=== PATIENT | male | born 1980 | race African-American/Black ===

== ENCOUNTER 2017-05-14 19:39 | Emergency (ER) | payer MEDICAID ==
[~2017-05-14] VITALS: Ht 182.9 cm; Wt 74.8 kg
[~2017-05-14 19:39] MED LIST: ACETAMINOPHEN-1 EAC1 ORAL; ALBUTEROL SULF8.5 GM INH; AMOXICILLIN500 MG ORAL; AUGMENTIN 875-1 EAC1 ORAL; AZITHROMYCIN250 MG ORAL; DOXYCYCLINE MO100 MG ORAL; IBUPROFEN600 MG ORAL; NKM; NORCO 5-325 TA1 EACH ORAL; PREDNISONE20 MG ORAL; PROAIR HFA8.5 GM INH
[2017-05-14] MEDS ORDERED: NKM (19:49)
[2017-05-14 19:51] VITALS: BP 131/79
[2017-05-14] MEDS ORDERED: AMOXICILLIN500 MG ORAL (20:29)
[2017-05-14] MEDS ORDERED: ALBUTEROL SULF8.5 GM INH (20:29)
[2017-05-14] MEDS ORDERED: PREDNISONE20 MG ORAL (20:29)
[2017-05-14] MEDS ORDERED: PROMETHAZINE-C118 M1 ORAL (20:29)
[2017-05-14 20:39] VITALS: BP 131/79
--- NOTE | 2017-05-15 13:23 | Emergency Room Report ---
History of Present Illness General Chief Complaint: Upper Respiratory Illness Source: Patient Present Illness HPI 36-year-old male presents ED for evaluation. States that he did have a productive cough with thick greenish sputum for last 2 days. Also has history of asthma. Denies fevers or chills. Denies sick contacts recent travel. Denies ear ache or sore throat. No other aggravating relieving factors. Denies any other associated symptoms Allergies: Coded Allergies: No Known Allergies (Unverified , 11/28/12) Patient History Past Medical History: asthma Past Surgical History: none Pertinent Family History: none Social History: Denies: smoking, alcohol use, drug use Immunizations: UTD Reviewed Nursing Documentation: PMH: Agreed, PSxH: Agreed Nursing Documentation-PMH Past Medical History: No History, Except For Hx Cardiac Problems: No - hiv Hx Asthma: Yes Hx COPD: No - "walking pneumonia" Hx Cancer: No Hx Gastrointestinal Problems: No Review of Systems All Other Systems: negative except mentioned in HPI Physical Exam Vital Signs Date Time Temp Pulse Resp B/P (MAP) Pulse Ox O2 Delivery O2 Flow Rate FiO2 05/14/17 19:44 97.7 96 16 131/79 99 Room Air Sp02 EP Interpretation: reviewed, normal General Appearance: no apparent distress, alert, GCS 15, non-toxic Head: normocephalic, atraumatic Eyes: bilateral eye normal inspection, bilateral eye PERRL ENT: hearing grossly normal, normal pharynx, no angioedema, normal voice Neck: full range of motion, supple/symm/no masses Respiratory: chest non-tender, lungs clear, normal breath sounds, speaking full sentences Cardiovascular #1: regular rate, rhythm, no edema Cardiovascular #2: 2+ carotid (R), 2+ carotid (L), 2+ radial (R), 2+ radial (L) , 2+ dorsalis pedis (R), 2+ dorsalis pedis (L) Gastrointestinal: normal bowel sounds, non tender, soft, non-distended, no guarding, no rebound Rectal: deferred Genitourinary: normal inspection, no CVA tenderness Musculoskeletal: back normal, gait/station normal, normal range of motion, non- tender Neurologic: alert, oriented x3, responsive, motor strength/tone normal, sensory intact, speech normal Psychiatric: judgement/insight normal, memory normal, mood/affect normal, no suicidal/homicidal ideation Reflexes: 3+ bicep (R), 3+ bicep (L), 3+ tricep (R), 3+ tricep (L), 3+ knee (R) , 3+ knee (L) Skin: normal color, no rash, warm/dry, well hydrated Lymphatic: no adenopathy Medical Decision Making Diagnostic Impression: Primary Impression: Atypical pneumonia ER Course Hospital Course 36 yo M presents with productive cough Differential diagnoses include: URI, pharyngitis, otitis media, asthma Clinical course Patient placed on stretcher. After initial history, physical exam reveals a young male in no acute distress. Bilateral TM unremarkable. No pharyngeal erythema. No tonsillar exudates. No lymphadenopathy. minimal crackles in lungs. abdomen soft. Clinical presentation consistent with atypical pneumonia. Will prescribe antibiotics Diagnosis - atypical pneumonia Stable and discharged home with Rx Amoxicillin, albuterol, prednisone, promethazine/codeine. Instructed to followup with PMD. Return to ED if symptoms recur or worsen Last Vital Signs Date Time Temp Pulse Resp B/P (MAP) Pulse Ox O2 Delivery O2 Flow Rate FiO2 05/14/17 20:39 97.7 96 16 131/79 99 Room Air Status: improved Disposition: HOME, SELF-CARE Condition: Stable Scripts Codeine/Promethazine Hcl* (PROMETHAZINE-CODEINE SYRUP*) 118 Ml Syrup 5 ML ORAL Q6H Y for For Cough, #118 ML 0 Refills Prov: RAJESH CORTES M.D. 05/14/17 Prednisone* (PREDNISONE*) 20 Mg Tablet 40 MG ORAL DAILY, #10 TAB Prov: RAJESH CORTES M.D. 05/14/17 Albuterol Sulfate* (ALBUTEROL SULFATE MDI*) 8.5 Gm Hfa.aer.ad 2 PUFF INH Q6H, #1 EA 0 Refills Prov: RAJESH CORTES M.D. 05/14/17 Amoxicillin* (AMOXIL*) 500 Mg Capsule 500 MG ORAL THREE TIMES A DAY, #21 CAP Prov: RAJESH CORTES M.D. 05/14/17 Referrals: NOT CHOSEN IPA/,REFERRING (PCP) Patient Instructions: Community-Acquired Pneumonia, Adult, [id number] RAJESH CORTES M.D. May 15, 2017 13:22
== END 2017-05-14 20:40 | disposition home or self-care (01) ==
LOC: EMR 20:40
DX: J18.9 Pneumonia, unspecified organism (principal); J45.909 Unspecified asthma, uncomplicated
CPT/HCPCS: 99283

== ENCOUNTER 2017-10-19 17:11 | Emergency (ER) | payer MEDICAID ==
[~2017-10-19] VITALS: Ht 182.9 cm; Wt 72.6 kg
[~2017-10-19 17:11] MED LIST changes: +PROMETHAZINE-C118 M1 ORAL
[2017-10-19] MEDS ORDERED: AUGMENTIN 875-1 EAC1 ORAL (18:05)
[2017-10-19 18:07] VITALS: BP 120/65
[2017-10-19 18:15] VITALS: BP 120/65
[2017-10-19] MEDS ORDERED: Augmentin 875mg Tab ORAL ONE (18:15)
[2017-10-19] MEDS ORDERED: IBUPROFEN600 MG ORAL (18:21)
--- NOTE | 2017-10-19 21:34 | Emergency Room Report ---
History of Present Illness General Chief Complaint: Skin Rash/Abscess Source: Patient, Medical Record Present Illness HPI 36-year-old male presents ED complaining of pain and swelling to right hand. States that yesterday he injected methamphetamine into his hand. Pain is dull, 8 out of 10, nonradiating. Denies fevers or chills. Denies any discharge. No other aggravating relieving factors. Denies any other associated symptoms Allergies: Coded Allergies: No Known Allergies (Unverified , 11/28/12) Patient History Past Surgical History: none Pertinent Family History: none Social History: Reports: drug use; Denies: smoking, alcohol use Immunizations: UTD Reviewed Nursing Documentation: PMH: Agreed; PSxH: Agreed Nursing Documentation-PMH Past Medical History: No History, Except For Hx Cardiac Problems: No - hiv Hx Asthma: Yes Hx COPD: No - "walking pneumonia" Hx Cancer: No Hx Gastrointestinal Problems: No Review of Systems All Other Systems: negative except mentioned in HPI Physical Exam Vital Signs Date Time Temp Pulse Resp B/P (MAP) Pulse Ox O2 Delivery O2 Flow Rate FiO2 10/19/17 17:39 99.2 108 18 120/65 98 Room Air 99.1 Sp02 EP Interpretation: reviewed, normal General Appearance: no apparent distress, alert, GCS 15, non-toxic Head: normocephalic Eyes: bilateral eye normal inspection, bilateral eye PERRL ENT: normal ENT inspection Neck: normal inspection Respiratory: normal inspection Cardiovascular #1: normal inspection Gastrointestinal: normal inspection Rectal: deferred Genitourinary: no CVA tenderness Musculoskeletal: swelling - R hand Neurologic: alert, oriented x3, responsive, motor strength/tone normal, sensory intact, speech normal Psychiatric: normal inspection Skin: other - swelling/induration R hand. no fluctuance or discharge Lymphatic: normal inspection Medical Decision Making Diagnostic Impression: Primary Impression: Cellulitis of hand ER Course Hospital Course 36-year-old male presents to ED with redness, swelling to right hand Differential diagnoses include: Cellulitis, dermatitis, insect bite, abscess Clinical course Patient placed on stretcher. After initial history, physical exam reveals a male in no acute distress. On exam there is swelling, erythema and induration to the right hand. There is no fluctuance. Patient documents history of drug abuse which likely contributed to his infection. Given Augmentin here and ibuprofen here for pain. We'll discharge on antibiotics Diagnosis - cellulitis of hand stable and discharged to home with prescription for augmentin, motrin. Instructed to followup with PMD. Instructed return to ED if symptoms recur or worsen Last Vital Signs Date Time Temp Pulse Resp B/P (MAP) Pulse Ox O2 Delivery O2 Flow Rate FiO2 10/19/17 18:17 99.1 10/19/17 18:15 89 18 120/65 98 Room Air Status: improved Disposition: HOME, SELF-CARE Condition: Stable Scripts Ibuprofen* (MOTRIN*) 600 Mg Tablet 600 MG ORAL Q8H PRN for For Pain, #30 TAB 0 Refills Prov: Jone Wiggins MD 10/19/17 Amoxicillin/Potassium Clav 875-125* (AUGMENTIN 875-125 TABLET*) 1 Each Tablet 1 TAB ORAL TWICE A DAY, #20 TAB Prov: Jone Wiggins MD 10/19/17 Referrals: NON PHYSICIAN (PCP) Patient Instructions: Abscess, [id number] Jone Wiggins MD Oct 19, 2017 21:34
== END 2017-10-19 18:20 | disposition home or self-care (01) ==
LOC: EMR 18:00
DX: L03.113 Cellulitis of right upper limb (principal); J45.909 Unspecified asthma, uncomplicated; F15.90 Other stimulant use, unspecified, uncomplicated
CPT/HCPCS: 99284

== ENCOUNTER 2019-02-27 11:57 | Emergency (ER) | payer MEDICAID, OTHER ==
[~2019-02-27] VITALS: Ht 182.9 cm; Wt 72.6 kg
[2019-02-27 12:10] VITALS: BP 107/71
--- NOTE | 2019-02-27 12:10 | NUR ---
ED Nurse Note: Patient walked into ED c/o diarrhea and generalized weakness for the past 2 days, states that he is "not feeling well" patient is acting very lethargic, heart rate of 145. EKG done, IV started on patients right forearm 18 gauge. initially patients refusing care, states that he only wanted urine sample. patient placed on a property manager. o2 sat at 96%, will continue to monitor.
[2019-02-27] MEDS ORDERED: Omnipaque-300 100ml vial INJ PRN (12:15)
[2019-02-27 12:44] LABS: HEMATOCRIT 44.9 % (42.0-52.0); HEMOGLOBIN 14.8 G/DL (14.2-18.0); LYMPHOCYTES % (AUTO) 31.4 % (20.0-45.0); MEAN CORPUSCULAR VOLUME 85 FL (80-99); NEUTROPHILS % (AUTO) 53.6 % (45.0-75.0); PLATELET COUNT 133 K/UL (150-450); RED BLOOD COUNT 5.28 M/UL (4.70-6.10); RED CELL DISTRIBUTION WIDTH 12.1 % (11.6-14.8); WHITE BLOOD COUNT 8.5 K/UL (4.8-10.8)
[2019-02-27 12:55] LABS: ANION GAP 8 mmol/L (5-15); BLOOD UREA NITROGEN 13 mg/dL (7-18); CALCIUM 8.8 MG/DL (8.5-10.1); CARBON DIOXIDE 29 MMOL/L (21-32); CHLORIDE 97 MMOL/L (98-107); CREATININE 1.4 MG/DL (0.55-1.30); POTASSIUM 3.7 MMOL/L (3.5-5.1); SODIUM 133 MMOL/L (136-145)
[2019-02-27 12:56] LABS: INR 1.4 (0.9-1.1)
[2019-02-27 12:59] LABS: ALANINE AMINOTRANSFERASE 20 U/L (12-78); ALBUMIN 2.7 G/DL (3.4-5.0); ALBUMIN/GLOBULIN RATIO 0.4 (1.0-2.7); ALKALINE PHOSPHATASE 76 U/L (46-116); ASPARTATE AMINO TRANSFERASE 26 U/L (15-37); BILIRUBIN,TOTAL 0.7 MG/DL (0.2-1.0)
--- NOTE | 2019-02-27 13:30 | NUR ---
ED Nurse Note: Patient is refusing CT and UA. Patient non compliant. S[place] Urena notified.
--- NOTE | 2019-02-27 14:00 | NUR ---
AMA: Patient is aox4, able to make own decisions. Patient refusing care. patient left against medical advice. Explained risks of leaving AMA including . Patient verbalized understanding. Removed ID band and IV line without complications. Patient signed AMA form. SEE AMA FORM. [place] Urena and Dr. Lepe made aware.
--- NOTE | 2019-02-27 20:24 | Emergency Room Report ---
History of Present Illness General Chief Complaint: Diarrhea Source: Patient Present Illness HPI 38-year-old male with history of HIV positive currently not taking any medication and heavy methamphetamine abuse here complaining of 2 days of multiple bouts of nonbloody emesis and nonbloody diarrhea. Complains of diffuse abdominal pain. Denies any recent use of methamphetamine, tobacco smoke , alcohol intake, or recent travel or intake of unusual patient comes today to emergency room tachycardic with heart rate of 147. Patient is noncompliant and does not want any blood work as reports that his veins are hard to find as he uses explains to inject methamphetamine. Patient is rating staff and nurses with disrespect and rude manner. Denies fever and chills. Refuses to get CT scan done. Denies history of HIV positive. Denies fever and chills. Denies chest pain, shortness of breath, palpitation, dizziness and headache. Has not taken medication for symptom relief. Allergies: Coded Allergies: No Known Allergies (Unverified , 11/28/12) Patient History Past Medical History: see triage record Past Surgical History: unable to obtain Pertinent Family History: none Immunizations: UTD Reviewed Nursing Documentation: PMH: Agreed; PSxH: Agreed Nursing Documentation-PMH Past Medical History: No History, Except For Hx Cardiac Problems: No - hiv Hx Asthma: Yes Hx COPD: No - "walking pneumonia" Hx Cancer: No Hx Gastrointestinal Problems: No Review of Systems All Other Systems: negative except mentioned in HPI Physical Exam Vital Signs Date Time Temp Pulse Resp B/P (MAP) Pulse Ox O2 Delivery O2 Flow Rate FiO2 02/27/19 12:01 98.8 147 18 107/71 (83) 95 Room Air Sp02 EP Interpretation: abnormal - Elevated heart rate General Appearance: alert, GCS 15, non-toxic, mild distress Head: normocephalic, atraumatic Eyes: bilateral eye normal inspection, bilateral eye PERRL ENT: hearing grossly normal, normal pharynx, no angioedema, normal voice Neck: full range of motion, supple/symm/no masses Respiratory: chest non-tender, lungs clear, normal breath sounds, no rhonchi, no wheezing, speaking full sentences Cardiovascular #1: regular rate, rhythm, no edema, no JVD, no murmur Cardiovascular #2: 2+ radial (R), 2+ radial (L) Gastrointestinal: normal bowel sounds, non tender, soft, non-distended, no guarding, no hernia, no rebound Rectal: deferred Genitourinary: normal inspection, no CVA tenderness Musculoskeletal: back normal, gait/station normal, normal range of motion, non- tender, no calf tenderness Neurologic: alert, oriented x3, responsive, motor strength/tone normal, sensory intact, speech normal Psychiatric: judgement/insight normal, memory normal, mood/affect normal, no suicidal/homicidal ideation Skin: no rash Lymphatic: no adenopathy Medical Decision Making PA Attestation All my diagnosis and treatment plans were reviewed ad discussed with my supervising physician Dr. Lepe Diagnostic Impression: Primary Impression: Diarrhea Additional Impression: Left against medical advice ER Course 38-year-old male with history of HIV positive currently not taking any medication and heavy methamphetamine abuse here complaining of 2 days of multiple bouts of nonbloody emesis and nonbloody diarrhea. Complains of diffuse abdominal pain. Denies any recent use of methamphetamine, tobacco smoke , alcohol intake, or recent travel or intake of unusual patient comes today to emergency room tachycardic with heart rate of 147. Patient is noncompliant and does not want any blood work as reports that his veins are hard to find as he uses explains to inject methamphetamine. Patient is rating staff and nurses with disrespect and rude manner. Denies fever and chills. Refuses to get CT scan done. Denies history of HIV positive. Denies fever and chills. Denies chest pain, shortness of breath, palpitation, dizziness and headache. Has not taken medication for symptom relief. Ddx considered but are not limited to: appendicitis, cholecystis, gastritis, gastroenteritis, UTI, pyelonephritis, SBO, diverticulitis, influenza with GI manifestation, HI, Vital signs: are WNL, pt. is afebrile H&PE are most consistent with: Diarrhea, patient left AGAINST MEDICAL ADVICE ORDERS: abdominal CT, abdominal pain set, EKG, ED INTERVENTIONS: NS bolus, Zofran, Pepcid DISCHARGE: Patient was taken to medical advice however stable at time of discharge. Patient did not want any CT scan done as said that everything was taken to and he just wanted to be hydrated better. Patient to collect his blood work later by requesting medical records. No known status of latest CD 4 counts and viral load as patient has not been to his infectious disease doctor and a long time and denies having history of HIV positive. EKG Diagnostic Results Rate: tachycardiac Rhythm: other - tachy ST Segments: no acute changes Other Impression No acute ST changes Chest X-Ray Diagnostic Results Chest X-Ray Diagnostic Results : Chest X-Ray Ordered: Yes # of Views/Limited/Complete: 1 View Indication: Other EP Interpretation: Yes PA Xray: Interpretation reviewed, by supervising MD, and agrees with findings. Interpretation: no consolidation, no effusion, no pneumothorax Impression: No acute disease Electronically Signed by: Romel Gloria PA-C Last Vital Signs Date Time Temp Pulse Resp B/P (MAP) Pulse Ox O2 Delivery O2 Flow Rate FiO2 02/27/19 12:10 98.8 140 18 107/71 95 Room Air Disposition: AGAINST MEDICAL ADVICE Condition: Stable Referrals: NOT CHOSEN IPA/,REFERRING (PCP) Romel Shah Feb 27, 2019 20:24
--- NOTE | 2019-02-28 14:26 | Diagnostic Imaging Report ---
Indication: Chest pain Comparison: None A single view chest radiograph was obtained. Findings: Cardiomediastinal appearance is within normal limits for age. The lungs are clear. Pulmonary vascularity is appropriate. The diaphragmatic contour is smooth and costophrenic angles are sharp. No pleural effusions are identified. The bones are unremarkable. Impression: No acute findings
--- NOTE | 2019-03-01 07:28 | Cardiology Report ---
APPROVED REPORT EKG Measurement Heart [id number] Sinus tachycardia Biatrial enlargement Rightward axis Pulmonary disease pattern Abnormal ECG
== END 2019-02-27 14:00 | disposition left against medical advice (07) ==
LOC: EMR 12:23
DX: R19.7 Diarrhea, unspecified (principal); B20 Human immunodeficiency virus [HIV] disease; J45.909 Unspecified asthma, uncomplicated; R07.9 Chest pain, unspecified; R00.0 Tachycardia, unspecified
CPT/HCPCS: 36415; 71045; 80053; 83690; 84484; 85025; 85610; 85730; 86850; 86900; 86901; 93005; 96361; 96374; 96375; J2405; S0028; Z7502; 99284; J7030

== ENCOUNTER 2019-03-03 17:15 | Emergency (ER) | payer OTHER ==
[~2019-03-03] VITALS: Ht 182.9 cm; Wt 72.6 kg
--- NOTE | 2019-03-03 17:49 | Emergency Room Report ---
History of Present Illness General Chief Complaint: Diarrhea Source: Patient, Medical Record Present Illness HPI Disclaimer: Please note that this report is being documented using DRAGON technology. This can lead to erroneous entry secondary to incorrect interpretation by the dictating instrument. HPI: 38-year-old male with a history of HIV and medication noncompliance with antiretrovirals presents for evaluation of diarrhea. He was seen in the emergency department on 02/27 complaining of intermittent cough, vomiting, diarrhea, general malaise. Patient had blood work and chest x-ray performed at that time but states he left prior to obtaining the results given a confrontation with staff. He came in today for reevaluation of his diarrhea and to obtain his blood work and chest x-ray results. He states that his cough is intermittent but improving, he is no longer vomiting, denies fever, denies sore throat is otherwise feeling well. He continues to have intermittent watery diarrhea stating that he needs a note for work as he cannot go to his job if he is having diarrhea. He has not taken antiretrovirals for proxy 1 month stating that he will follow-up closely with the clinic to restart his medications. Denies any bloody diarrhea, mucoid discharge, dysuria, hematuria or flank pain. PMH: HIV with medication noncompliance PSH: Denies Allergies: Denies Social Hx: Substance abuse Allergies: Coded Allergies: No Known Allergies (Unverified , 11/28/12) Nursing Documentation-PMH Past Medical History: No History, Except For Hx Cardiac Problems: No - hiv Hx Asthma: Yes Hx COPD: No - "walking pneumonia" Hx Cancer: No Hx Gastrointestinal Problems: No Review of Systems All Other Systems: negative except mentioned in HPI Physical Exam Vital Signs Date Time Temp Pulse Resp B/P (MAP) Pulse Ox O2 Delivery O2 Flow Rate FiO2 03/03/19 17:24 98.4 92 18 110/78 (89) 96 Room Air General: Awake and alert, no acute distress HEENT: NC/AT. EOMI. Cardiovascular: RRR. S1 and S2 normal. No murmur appreciated Resp: Normal work of breathing. No cough, wheezing or crackles appreciated Abdomen: Abdomen is soft, nondistended. Nontender Skin: Intact. No abrasions, laceration or rash over the exposed skin MSK: Normal tone and bulk. Moving all extremities. No obvious deformity. Neuro: Awake and alert. Mentating appropriately. Medical Decision Making Diagnostic Impression: Primary Impression: Diarrhea Additional Impression: Noncompliance with medications ER Course 38-year-old male history of HIV with medication noncompliance presents for reevaluation of persistent diarrhea. Since his symptoms and an additional ER presentation 02/27 his upper respiratory symptoms and upper abdominal symptoms seem to be improving. He continues to complain of intermittent watery diarrhea without blood or mucus discharge. At this time, he is refusing any repeat of his labs or chest x-ray stating that he just came in to get the results for his previous visit and a note for work as he states he cannot go back to his work while he is having diarrhea. Review of his previous labs shows a slight elevation in his creatinine and hyponatremia consistent with dehydration. He states he has had adequate urine output and continues to drink plenty of fluids. The patient is mentating appropriately and competent to make his own medical decisions. He is declining any blood work or repeat imaging at this time. He will be discharged and provided with a note for work though strongly encouraged him to reestablish follow-up with his HIV clinic and restart antiviral medications. We also discussed reasons to return to the emergency department. He understands and agrees with this treatment plan will be discharged home. Last Vital Signs Date Time Temp Pulse Resp B/P (MAP) Pulse Ox O2 Delivery O2 Flow Rate FiO2 03/03/19 17:24 98.4 92 18 110/78 (89) 96 Room Air Disposition: HOME, SELF-CARE Condition: Stable Referrals: Faisal Valladares [facility] Departure Forms: Return to Work Return to Work Date: Mar 07, 2019 Patient Instructions: Diarrhea, Adult, CD4 Count Test Additional Instructions: Please follow-up with your HIV clinic as soon as possible to restart your antiviral medications. Continue to drink plenty of fluids to avoid dehydration and eat regular meals as able. Follow-up with your doctor as soon as possible. Return to the emergency department if symptoms last longer than 5 days. Return to the emergency department with any new or worsening symptoms. Robert Aleman MD Mar 03, 2019 17:49
[2019-03-03 18:07] VITALS: BP 110/78
[2019-03-03 18:08] VITALS: BP 110/78
--- NOTE | 2019-03-03 18:09 | NUR ---
ED Nurse Note: no contact with pt ermd eval done no nsg orders pt given aci .
--- NOTE | 2019-03-03 18:10 | NUR ---
ER DISCHARGE NOTE: Patient is cleared to be discharged per ERMD, pt is aox4, on room air, with stable vital signs. pt was given dc and prescription instructions, pt was able to verbalize understanding, pt id band removed without complications. pt is able to ambulate with steady gait. pt took all belongings.
[2019-03-06] MEDS ORDERED: ADULT WAL-100 MG/5 M ORAL (11:25)
[2019-03-06] MEDS ORDERED: ZITHROMAX250 MG ORAL (11:25)
== END 2019-03-03 18:08 | disposition home or self-care (01) ==
LOC: EMR 17:38
DX: R19.7 Diarrhea, unspecified (principal); Z91.14 Patient's other noncompliance with medication regimen; J45.909 Unspecified asthma, uncomplicated; B20 Human immunodeficiency virus [HIV] disease
CPT/HCPCS: 99281

== ENCOUNTER 2019-10-18 21:29 | Emergency (ER) | payer OTHER ==
[~2019-10-18] VITALS: Ht 182.9 cm; Wt 72.6 kg
[~2019-10-18 21:29] MED LIST changes: +ADULT WAL-100 MG/5 M ORAL; +ZITHROMAX250 MG ORAL
[2019-10-18 21:53] VITALS: BP 117/65
[2019-10-18] MEDS ORDERED: BACITRACIN1 EACH TOPIC (21:57)
[2019-10-18] MEDS ORDERED: CEPHALEXIN500 MG ORAL (21:57)
[2019-10-18] MEDS ORDERED: Bacitracin Oint UD TOPIC ONE (22:00)
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
[2019-10-18 22:08] VITALS: BP 117/65
== END 2019-10-18 22:08 | disposition home or self-care (01) ==
LOC: EMR 22:05
DX: S01.81XA Laceration without foreign body of other part of head, initial encounter (principal); S00.81XA Abrasion of other part of head, initial encounter; X99.0XXA Assault by sharp glass, initial encounter; Y92.9 Unspecified place or not applicable
CPT/HCPCS: 99282

== ENCOUNTER 2019-11-20 02:01 | Emergency (ER) | payer OTHER ==
[~2019-11-20] VITALS: Ht 182.9 cm; Wt 72.6 kg
[~2019-11-20 02:01] MED LIST changes: +BACITRACIN1 EACH TOPIC; +CEPHALEXIN500 MG ORAL
[2019-11-20 02:13] VITALS: BP 105/64
--- NOTE | 2019-11-20 02:13 | NUR ---
ED Nurse Note: pt ambulated into ed from home CO of SOB and trouble breathing x 1 week d/t losing rescue inhaler. Pt aao x 4, ambulates with steady gait. Pt denies fever, chills, n/v/d, being around others who are sick. Pt states he is an IV drug user but denies any drug use today. ERMD at bedside. Awaiting further orders.
--- NOTE | 2019-11-20 02:21 | NUR ---
ED Nurse Note: Rapid COVID swab sent to lab
--- NOTE | 2019-11-20 02:22 | Emergency Room Report ---
History of Present Illness General Chief Complaint: Asthma Source: Patient Present Illness HPI This a 39-year-old male with a history of asthma. He presents with chief complaint of shortness of breath and feeling tired. Onset for about a week. Denies any fever or chills. He has not had to use his inhaler for many years. Worse with inspiration. Worse with exertion. Better with rest. Denies any nausea or vomiting. Denies any productive cough. No sick contact. Allergies: Coded Allergies: No Known Allergies (Unverified , 11/28/12) COVID-19 Screening Contact w/high risk pt: No Recent Travel to affected area: No Experienced COVID-19 symptoms?: No COVID-19 Testing performed PROCUREMENT SPECIALIST: No Patient History Past Medical History: see triage record, old chart reviewed, asthma Past Surgical History: none Pertinent Family History: none Social History: Denies: smoking Immunizations: other Reviewed Nursing Documentation: PMH: Agreed; PSxH: Agreed Nursing Documentation-PMH Hx Cardiac Problems: No Hx Hypertension: No Hx Pacemaker: No Hx Asthma: Yes Hx COPD: No Hx Diabetes: No Hx Cancer: No Hx Gastrointestinal Problems: No Hx Dialysis: No Hx Neurological Problems: No - HIV Hx Seizures: No Review of Systems Constitutional: Reports: malaise Eye: Denies: eye pain, blurred vision ENT: Denies: ear pain, nose congestion, throat swelling Respiratory: Reports: cough, shortness of breath Cardiovascular: Denies: chest pain, palpitations Gastrointestinal: Denies: abdominal pain, diarrhea, nausea, vomiting Musculoskeletal: Denies: back pain, joint pain Skin: Denies: rash Neurological: Denies: headache, numbness Endocrine: Denies: increased thirst, increased urine Hematologic/Lymphatic: Denies: easy bruising All Other Systems: negative except mentioned in HPI Physical Exam Vital Signs Date Time Temp Pulse Resp B/P (MAP) Pulse Ox O2 Delivery O2 Flow Rate FiO2 11/20/19 02:03 99.0 117 16 105/64 (78) 95 Room Air Vitals with low-grade fever Sp02 EP Interpretation: reviewed, normal General Appearance: well appearing, no apparent distress, alert Head: normocephalic, atraumatic Eyes: bilateral eye PERRL, bilateral eye EOMI ENT: hearing grossly normal, normal pharynx Neck: full range of motion, supple, no meningismus Respiratory: chest non-tender, lungs clear, normal breath sounds Cardiovascular #1: regular rate, rhythm, no murmur Gastrointestinal: normal bowel sounds, non tender, no mass, no organomegaly, no bruit, non-distended Musculoskeletal: back normal, normal range of motion, gait/station normal Psychiatric: mood/affect normal Medical Decision Making Diagnostic Impression: Primary Impression: Asthma Qualified Codes: J45.21 - Mild intermittent asthma with (acute) exacerbation Additional Impressions: Community acquired pneumonia Qualified Codes: J18.9 - Pneumonia, unspecified organism Suspected 2019 novel coronavirus infection ER Course Patient presents with malaise and cough and shortness of breath. Chest x-ray show bilateral pneumonia. His white count is normal but lymphocyte count is low. Also has elevated C-reactive protein. I suspect that he has COVID pneumonia even though the rapid COVID test here is negative. His oxygenation is normal. Patient is in no respiratory distress. He wants to go home. This patient was evaluated in the context of the global COVID-19 pandemic, which necessitated consideration that the patient might be at risk for infection with the [id number] virus that causes COVID-19. Institutional protocols and algorithms that pertain to the evaluation of patients at risk for COVID-19 and the state of rapid change based on information released by multiple regulatory bodies including the CDC and federal and state organizations. These policies and algorithms were followed during the patient' s care in the ED. Chest X-Ray Diagnostic Results Chest X-Ray Diagnostic Results : Chest X-Ray Ordered: Yes # of Views/Limited/Complete: 1 View Indication: Shortness of Breath EP Interpretation: Yes Interpretation: no effusion, no pneumothorax, other - Bilateral infiltrate Impression: Other - Bilateral infiltrates Electronically Signed by: Rosendo Serrano MD Last Vital Signs Date Time Temp Pulse Resp B/P (MAP) Pulse Ox O2 Delivery O2 Flow Rate FiO2 11/20/19 02:03 99.0 117 16 105/64 (78) 95 Room Air Status: improved Disposition: HOME, SELF-CARE Condition: Stable Scripts Azithromycin* (ZITHROMAX*) 250 Mg Tablet 250 MG ORAL DAILY, #4 TAB Prov: Rosendo Serrano MD 11/20/19 Prednisone* (PREDNISONE*) 20 Mg Tablet 40 MG ORAL DAILY, #8 TAB Prov: Rosendo Serrano MD 7/26/20 Albuterol Sulfate* (Albuterol Sulfate Hfa*) 8.5 Gm Hfa.aer.ad 2 PUFF INH Q4H, #1 INH Prov: Rosendo Serrano MD 11/20/19 Referrals: NOT CHOSEN IPA/,REFERRING (PCP) Additional Instructions: Follow-up with your doctor in 2 to 3 days if not better. Return if worse. Rosendo Serrano MD Nov 20, 2019 02:22
--- NOTE | 2019-11-20 02:25 | NUR ---
ED Nurse Note: Pt moved from room 05 to room 07 per ERMD
[2019-11-20] MEDS ORDERED: Acetaminophen 500mg (ES) tab ORAL ONE (02:30)
--- NOTE | 2019-11-20 02:35 | NUR ---
ED Nurse Note: all medications administered, pt tolerated well no ss of distress noted. IV line initated, blood work sent to lab. Will continue to monitor.
[2019-11-20] MEDS ORDERED: Azithromycin 500 MG in NS 275 ML IV ONE (02:45)
[2019-11-20] MEDS ORDERED: cefTRIAXone 1 GM in NS 55 ML IVPB ONE (02:45)
--- NOTE | 2019-11-20 02:49 | Diagnostic Imaging Report ---
EXAM: XR Chest, 1 View CLINICAL HISTORY: SOB TECHNIQUE: Frontal view of the chest. COMPARISON: 03/06/19 FINDINGS: Lungs: Small amount of airspace opacities in both lungs over middle and lower lung zones. Pleural space: Unremarkable. No pneumothorax. Heart: Unremarkable. No cardiomegaly. Mediastinum: Unremarkable. Bones/joints: Unremarkable. IMPRESSION: Bilateral pneumonia.
[2019-11-20 03:23] LABS: ANION GAP 4 mmol/L (5-15); BLOOD UREA NITROGEN 15 mg/dL (7-18); CALCIUM 8.7 MG/DL (8.5-10.1); CARBON DIOXIDE 30 MMOL/L (21-32); CHLORIDE 105 MMOL/L (98-107); CREATININE 1.3 MG/DL (0.55-1.30); POTASSIUM 3.3 MMOL/L (3.5-5.1); SODIUM 139 MMOL/L (136-145)
[2019-11-20 03:36] LABS: BASOPHILS % (AUTO) 0.4 % (0.0-2.0); EOSINOPHILS % (AUTO) 0.3 % (0.0-3.0); HEMOGLOBIN 12.3 G/DL (14.2-18.0); LYMPHOCYTES % (AUTO) 15.9 % (20.0-45.0); MEAN CORPUSCULAR VOLUME 86 FL (80-99); NEUTROPHILS % (AUTO) 77.5 % (45.0-75.0); PLATELET COUNT 179 K/UL (150-450); RED BLOOD COUNT 4.43 M/UL (4.70-6.10); RED CELL DISTRIBUTION WIDTH 13.3 % (11.6-14.8); WHITE BLOOD COUNT 9.6 K/UL (4.8-10.8)
--- NOTE | 2019-11-20 04:10 | NUR ---
ED Nurse Note: ERMD at bedside
[2019-11-20] MEDS ORDERED: ALBUTEROL SULF8.5 G1 INH (04:15)
[2019-11-20] MEDS ORDERED: ZITHROMAX250 MG ORAL (04:15)
[2019-11-20] MEDS ORDERED: PREDNISONE20 MG ORAL (04:15)
[2019-11-20 04:38] VITALS: BP 112/69
--- NOTE | 2019-11-20 04:38 | NUR ---
ER DISCHARGE NOTE: Patient is cleared to be discharged home per ERMD, pt is aox4, 96% on room air, with stable vital signs. pt was given dc and prescription instructions, pt was able to verbalize understanding, pt id band and iv site removed without complications. pt is able to ambulate with steady gait. pt took all belongings. pt aao x 4, ambulates with steady gait. Pt verbalized understanding of dc instructions.
--- NOTE | 2019-11-21 09:57 | NUR ---
ED Nurse Note: Follow up call regarding the covid swab and spoke with him and relayed results. Verified first.
== END 2019-11-20 04:38 | disposition home or self-care (01) ==
LOC: EMR 02:20
DX: J45.21 Mild intermittent asthma with (acute) exacerbation (principal); J18.9 Pneumonia, unspecified organism; B20 Human immunodeficiency virus [HIV] disease
CPT/HCPCS: 36415; 71045; 80048; 85025; 85379; 86140; 96365; 96368; J0456; J0696; J7030; J7050; J7512; U0002; Z7502; 99284

== ENCOUNTER 2020-03-27 14:13 | Emergency (ER) | payer OTHER ==
[~2020-03-27] VITALS: Ht 182.9 cm; Wt 72.6 kg
[~2020-03-27 14:13] MED LIST changes: +ALBUTEROL SULF8.5 G1 INH
[2020-03-27 14:26] VITALS: BP 118/81
--- NOTE | 2020-03-27 14:29 | Emergency Room Report ---
History of Present Illness General Chief Complaint: Asthma Source: Patient Present Illness HPI Disclaimer: Please note that this report is being documented using [employer] technology. This can lead to erroneous entry secondary to incorrect interpretation by the dictating instrument. HPI: 39-year-old male with a history of asthma presents for evaluation of shortness of breath and weakness. Symptoms present 3 to 4 days. He ran out of his albuterol inhaler sometime ago as he does not normally need it. He reports a nonproductive cough but denies fever, sore throat, nasal congestion, nausea, vomiting, abdominal pain. He has been isolating himself from friends and family. Denies contact with anyone with COVID-19. He was told that he had the suspected COVID-19 infection earlier this summer and was treated for pneumonia. His symptoms resolved after treatment. Shortness of breath is exacerbated by exertion and relieved by rest. PMH: Asthma, HIV medicated PSH: Reviewed Allergies: Denied Social Hx: Denied drug or alcohol abuse Allergies: Coded Allergies: No Known Allergies (Unverified , 11/28/12) COVID-19 Screening Contact w/high risk pt: No Recent Travel to affected area: No Experienced COVID-19 symptoms?: No COVID-19 Testing performed OYSTER PREPARER: No Nursing Documentation-PMH Past Medical History: No History, Except For Hx Cardiac Problems: No Hx Hypertension: No Hx Pacemaker: No Hx Asthma: Yes Hx COPD: No Hx Diabetes: No Hx Cancer: No Hx Gastrointestinal Problems: No Hx Dialysis: No Hx Neurological Problems: No - HIV Hx Seizures: No Review of Systems All Other Systems: negative except mentioned in HPI Physical Exam Vital Signs Date Time Temp Pulse Resp B/P (MAP) Pulse Ox O2 Delivery O2 Flow Rate FiO2 03/27/20 14:17 97.3 113 17 114/76 (89) 97 Room Air General: Awake and alert, no acute distress, afebrile HEENT: NC/AT. EOMI. Cardiovascular: Tachycardic. S1 and S2 normal. No murmur appreciated Resp: Normal work of breathing. No cough during exam. Faint wheezing at the lung bases on inspiration bilaterally. No crackles appreciated. Abdomen: Abdomen is soft, nondistended. Nontender Skin: Intact. No abrasions, laceration or rash over the exposed skin MSK: Normal tone and bulk. Moving all extremities. No obvious deformity. Neuro: Awake and alert. Mentating appropriately. Medical Decision Making Diagnostic Impression: Primary Impression: Asthma exacerbation Additional Impression: Pneumonia ER Course 39-year-old male history of asthma presenting for evaluation of 4 days shortness of breath and fatigue. He is asking for refills of his albuterol inhaler. Differential includes but is not limited to asthma exacerbation, viral syndrome, pneumonia, bronchitis, COVID-19 infection, influenza among others. Chest x-ray obtained and shows some mild streaking in the left lower lobe which may be atelectasis versus early infiltrate. We will start the patient on antibiotics, continue in isolation, refill his albuterol inhaler. Heart rate is normalized. He remains comfortable no respiratory distress. Stable for outpatient follow-up but strict return precautions and isolation precautions were discussed. We will obtain outpatient COVID-19 testing. He understands and agrees with this treatment plan. Chest X-Ray Diagnostic Results Chest X-Ray Diagnostic Results : Chest X-Ray Ordered: Yes # of Views/Limited/Complete: 1 View Indication: Shortness of Breath EP Interpretation: Yes Interpretation: no effusion, no pneumothorax, other - Questionable early infiltrate versus atelectasis left lower lobe Impression: Other - Early pneumonia versus atelectasis Electronically Signed by: Electronically signed by Dr. Robert Aleman MD Last Vital Signs Date Time Temp Pulse Resp B/P (MAP) Pulse Ox O2 Delivery O2 Flow Rate FiO2 03/27/20 14:17 97.3 113 17 114/76 (89) 97 Room Air Disposition: HOME, SELF-CARE Condition: Stable Scripts Prednisone* (PREDNISONE*) 20 Mg Tablet 40 MG ORAL DAILY, #8 TAB Prov: Robert Aleman MD 03/27/20 Albuterol Sulfate* (Albuterol Sulfate Hfa*) 8.5 Gm Hfa.aer.ad 2 PUFF INH Q4H, #1 INH Prov: Robert Aleman MD 03/27/20 Azithromycin* (ZITHROMAX*) 250 Mg Tablet 250 MG ORAL DAILY, #6 TAB 0 Refills Take two tables once daily for 1 day, then one tablet once daily for 4 days. Prov: Robert Aleman MD 03/27/20 Robert Aleman MD Mar 27, 2020 14:29
[2020-03-27] MEDS ORDERED: PREDNISONE20 MG ORAL (14:57)
[2020-03-27] MEDS ORDERED: ZITHROMAX250 MG ORAL (14:57)
[2020-03-27] MEDS ORDERED: ALBUTEROL SULF8.5 G1 INH (14:57)
[2020-03-27 15:05] VITALS: BP 125/68
--- NOTE | 2020-03-27 16:20 | Diagnostic Imaging Report ---
Indication: Shortness of breath Technique: One view of the chest Comparison: 11/20/2019 Findings: Ill-defined streaky and patchy opacities are seen in the right perihilar region and at the left lung base and retrocardiac region. No similar but slightly less extensive findings on the previous study. The heart size is normal. The pleural spaces are clear. Impression: Ill-defined bilateral parenchymal opacities, could indicate bilateral pneumonia. Correlate with clinical findings
== END 2020-03-27 15:09 | disposition home or self-care (01) ==
LOC: EMR 14:57
DX: J45.901 Unspecified asthma with (acute) exacerbation (principal); J18.9 Pneumonia, unspecified organism
CPT/HCPCS: 71045; Z7502; 99283